=== PATIENT | female | born 2000 ===

== ENCOUNTER 2022-01-26 13:47 | Emergency (ER) | payer SELFPAY ==
[~2022-01-26] VITALS: Ht 167.7 cm; Wt 46.7 kg
[2022-01-26 13:51] VITALS: BP 101/72
[2022-01-26] MEDS ORDERED: HYDR-700 PO (14:24)
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
[2022-01-26] MEDS ORDERED: hydrOXYzine (VISTARIL/ATARAX) 25 MG capsule/tablet PO ONE (14:30)
== END 2022-01-26 14:36 | disposition home or self-care (01) ==
LOC: ER FS 13:50
DX: F11.10 Opioid abuse, uncomplicated (principal); R20.2 Paresthesia of skin; Z28.310 Unvaccinated for COVID-19
CPT/HCPCS: 99281